=== PATIENT | female | born 1980 | race Caucasian/White ===

== ENCOUNTER → 2018-08-26 | Outpatient (CLI) | payer OTHER ==
[~2018-08-26] MED LIST: IOHEXOL 240 MG/ML 50ML VIAL. ONE; IOHEXOL 300 MG/ML 75 ML VIAL. IV ONE
--- NOTE | 2018-08-26 11:05 | RAD ---
CT ABD PELV W/ORAL IV CONTRAST Indication: Abdominal pain. Right lower quadrant pain. Exposure: One or more of the following individualized dose reduction techniques were utilized for this examination: 1. Automated exposure control 2. Adjustment of the mA and/or kV according to patient size 3. Use of iterative reconstruction technique. Technique: Intravenous contrast was given. No oral contrast per request. Lung bases are clear. There are a couple of small hypodense lesions in the superior liver adjacent to each other, the slightly larger lesion measures 9 mm. These are too small to characterize but would commonly be benign in the absence of any other risk factor. Spleen is not enlarged. The pancreas demonstrates no peripancreatic fluid or inflammatory change. Pancreatic head is difficult to distinguish from adjacent unopacified bowel. Small hypodense lesion at the anterior pancreatic head. This measures 6 mm. No evidence of adrenal mass. Kidneys demonstrate symmetric enhancement without focal mass or hydronephrosis. Gallbladder surgically absent. Aorta nonaneurysmal. No significant lymph node enlargement. No significant small bowel distention. No evidence of acute colitis. The appendix is normal. No evidence of ascites or pneumoperitoneum. No significant urinary bladder wall thickening. No evidence of pelvic mass. Vertebral body height and alignment are intact. There is transitional anatomy at the lumbosacral junction. IMPRESSION: 1. There are 2 hepatic lesions, too small to characterize, but most likely benign, absent any relative risk factors. 2. Small hypodense lesion at the anterior pancreatic head, may just represent interposed fat. Small pancreatic mass is not excludable. Dedicated MR of the pancreas/MRCP could further evaluate. 3. No acute findings. No acute appendicitis. Electronically signed by: Chris Srivastava MD (08/26/2018 11:02 AM) [id number]
== END | disposition home or self-care (01) ==
LOC: PMG 08:52
PROVIDERS: ATTEND Physician Assistant Medical
DX: K76.9 Liver disease, unspecified (principal); K86.9 Disease of pancreas, unspecified; Z90.710 Acquired absence of both cervix and uterus
CPT/HCPCS: 74177; Q9966; Q9967